=== PATIENT | male | born 1990 | race Caucasian/White ===

== ENCOUNTER 2021-11-29 10:43 | Emergency (ER) | payer MEDICAID ==
--- NOTE | 2021-11-29 11:35 | XRAY Report ---
PROCEDURE: Chest 2 View X-Ray INDICATIONS: COUGH TECHNIQUE: 2 view(s) of the chest. COMPARISON: None. FINDINGS: Surgical changes and devices: None. Lungs and pleura: No pleural effusions or pneumothorax. Lungs are clear. Mediastinum: Mediastinal contours are normal. Heart size is normal. Bones and chest wall: No suspicious bony abnormalities. Soft tissues appear unremarkable. IMPRESSION: No acute cardiopulmonary pathology. Reviewed by: Pete Del Real MD on 11/29/2021 11:34 AM PDT Approved by: Pete Del Real MD on 11/29/2021 11:34 AM PDT Station ID: [id number]
[2021-11-29 12:19] LABS: B. PARAPERTUSSIS- RESP PCR PAN NOT DETECTED; B. PERTUSSIS- RESP PCR PANEL NOT DETECTED; C. PNEUMONIAE- RESP PCR PANEL NOT DETECTED; CORONAVIRUS 229E-RESP PCR NOT DETECTED; CORONAVIRUS HKU1-RESP PCR NOT DETECTED; CORONAVIRUS NL63-RESP PCR NOT DETECTED; CORONAVIRUS OC43-RESP PCR NOT DETECTED; HUMAN METAPNEUMOVIRUS NOT DETECTED; INFLUENZA A- RESP PCR PANEL NOT DETECTED; INFLUENZA B - RESP PCR PANEL NOT DETECTED; M. PNEUMONIAE- RESP PCR PANEL NOT DETECTED; PARAINFLUENZA VIRUS 1 NOT DETECTED; PARAINFLUENZA VIRUS 2 NOT DETECTED; PARAINFLUENZA VIRUS 3 NOT DETECTED; PARAINFLUENZA VIRUS 4 NOT DETECTED; RHINOVIRUS/ENTEROVIRUS NOT DETECTED; RSV- RESP PCR PANEL NOT DETECTED; SARS-CoV-2 -RESP PCR PANEL NOT DETECTED
--- NOTE | 2021-11-29 13:34 | ED Physician Documentation ---
PD HPI URI - Stated complaint Stated Complaint: COUGH/ FEVER - Chief complaint Chief Complaint: Resp - History obtained from History obtained from: Patient, Family - Additional information Additional information: Patient is 31 yo M with no significant past medical history with cough, congestion and fevers x 1 week. Pt around kids at home with URI symptoms since school started. Pt has been using mucinex and tylenol. Home covid test negative x 2. Last mucinex and tylenol were last night. No sore throat, CP, or SOB. No leg swelling. Review of Systems Constitutional: reports: Fever Nose: reports: Congestion Throat: denies: Sore throat Cardiac: denies: Chest pain / pressure Respiratory: reports: Cough. denies: Dyspnea GI: denies: Abdominal Pain, Vomiting Skin: denies: Rash Musculoskeletal: denies: Back pain Neurologic: denies: Headache PD PAST MEDICAL HISTORY - Present Medications Home Medications: Ambulatory Orders Medication Instructions Recorded Confirmed Albuterol Sulf [Ventolin Hfa 1 - 2 puffs INH Q4HR PRN #1 gm 11/29/21 Inhaler] guaiFENesin/DEXTROMETHORPHAN 10 ml PO Q6H PRN #120 ml 11/29/21 [Robitussin Dm] - Allergies Allergies/Adverse Reactions: Allergies Allergy/AdvReac Type Severity Reaction Status Date / Time No Known Drug Allergies Allergy Verified 11/29/21 10:58 PD ED PE NORMAL - General General: Alert and oriented X 3, No acute distress, Well developed/nourished - HEENT HEENT: Atraumatic, Pharynx benign (No oral swelling/redness/exudate) - Cardiac Cardiac: RRR, Strong equal pulses - Respiratory Respiratory: No respiratory distress, Clear bilaterally - Abdomen Abdomen: Non tender, Non distended - Back Back: No spinal TTP - Derm Derm: Warm and dry - Extremities Extremities: No edema, No calf tenderness / cord - Neuro Neuro: Normal speech Results - Vitals Vitals: Vital Signs - 24 hr 11/29/21 11/29/21 10:54 13:41 Temperature 37 C 37 C Heart Rate 108 H 98 Respiratory 20 16 Rate Blood Pressure 144/87 H 137/84 H O2 Saturation 98 100 Oxygen O2 Source Room air - Labs Labs: Laboratory Tests 11/29/21 11:11 Nasal Adenovirus (PCR) NOT DETECTED Nasal B. parapertussis DNA (PCR) NOT DETECTED Nasal Coronavir 229E PCR NOT DETECTED Nasal Coronavir HKU1 PCR NOT DETECTED Nasal Coronavir NL63 PCR NOT DETECTED Nasal Coronavir OC43 PCR NOT DETECTED Nasal Enterovir/Rhinovir PCR NOT DETECTED Nasal Influenza B PCR NOT DETECTED Nasal Influenza A PCR NOT DETECTED Nasal Parainfluen 1 PCR NOT DETECTED Nasal Parainfluen 2 PCR NOT DETECTED Nasal Parainfluen 3 PCR NOT DETECTED Nasal Parainfluen 4 PCR NOT DETECTED Nasal RSV (PCR) NOT DETECTED Nasal B.pertussis DNA PCR NOT DETECTED Nasal C.pneumoniae (PCR) NOT DETECTED Asif Human Metapneumo PCR NOT DETECTED Nasal M.pneumoniae (PCR) NOT DETECTED Nasal SARS-CoV-2 (PCR) NOT DETECTED PD MEDICAL DECISION MAKING - ED course Complexity details: reviewed results, d/w patient ED course: Pt with URI symptoms x 1 week of cough/congestion/and reported fevers at home. Afebrile and overall exam reassuring with no signs of labored breathing. Clear lungs. Dry cough and congestion noted during exam. Respiratory panel negative and no consolidation or other abnormal findings on chest xray. DIscussed continuing with supportive care as well as concerning symptoms to return for. Departure - Departure Disposition: 01 Home, Self Care Clinical Impression: Upper respiratory infection Condition: Stable Instructions: ED Viral Syndrome Prescriptions: Albuterol Sulf [Ventolin Hfa Inhaler] 1 - 2 puffs INH Q4HR PRN #1 gm PRN Reason: Shortness Of Air/Wheezing guaiFENesin/DEXTROMETHORPHAN [Robitussin Dm] 10 ml PO Q6H PRN #120 ml PRN Reason: Cough Comments: You were evaluated for cough and fevers at home. Your respiratory panel is negative which checks for COVID, influenza and if you have the common cold viruses. Your symptoms could still be related to a viral infection that we do not check for. Your chest x-ray is clear and your vital signs here appear stable including no fever. I sent a prescription for cough medication and an albuterol inhaler to the [facility] pharmacy. If you have any worsening symptoms such as labored breathing, chest pain or any new concerns please return to the ER. Otherwise please continue with fluid hydration as well as ibuprofen or acetaminophen as needed for fevers or pains. Discharge Date/Time: 11/29/21 13:42
[2021-11-29 13:42] VITALS: BP 137/84
== END 2021-11-29 13:42 | disposition home or self-care (01) ==
LOC: ED 10:43
DX: J06.9 Acute upper respiratory infection, unspecified (principal)
CPT/HCPCS: 87633; 99282; 99284